=== PATIENT | female | born 1945 | race Asian ===

== ENCOUNTER 2018-10-23 15:08 | Inpatient (IN) | payer MEDICARE, MEDICAID ==
[~2018-10-23] VITALS: Ht 152.4 cm; Wt 77.3 kg
[~2018-10-23 15:08] MED LIST: ATOR20TA PO; BENA20TA82 PO; MECL-111 PO; METF500T PO
[2018-10-23] MEDS ORDERED: cefepime 2g/NS 100ml ADVANTAGE 100 ML IV ONE (15:40)
[2018-10-23] MEDS ORDERED: levoFLOXACIN-Levaquin 750MG/D5 150 ML IV ONE (15:40)
[2018-10-23 16:25] LABS: BASOPHILS % (AUTO) 0.4 % (0-1); EOSINOPHILS # (AUTO) 0.1 X10'3 (0-0.9); EOSINOPHILS % (AUTO) 1.1 % (0-6); HEMATOCRIT 41.2 % (35.0-45.0); HEMOGLOBIN 13.5 g/dl (12.0-16.0); LYMPHOCYTES # (AUTO) 0.5 X10'3 (1.1-4.8); LYMPHOCYTES % (AUTO) 10.5 % (21-51); MEAN CORPUSCULAR HEMOGLOBIN 25.6 PG (27.0-31.0); MEAN CORPUSCULAR HGB CONC 32.7 g/dL (33.0-36.5); MEAN CORPUSCULAR VOLUME 78.2 FL (78-98); MEAN PLATELET VOLUME 7.8 FL (7.4-10.4); MONOCYTES # (AUTO) 0.2 X10'3 (0-0.9); MONOCYTES % (AUTO) 3.9 % (2-12); NEUTROPHILS # (AUTO) 4.1 X10'3 (1.8-7.7); NEUTROPHILS % (AUTO) 84.1 % (42-75); PLATELET COUNT 163 X10'3 (140-440); RED BLOOD COUNT 5.26 X10'6 (4.20-5.60); RED CELL DISTRIBUTION WIDTH 15.7 % (11.5-14.5); WHITE BLOOD COUNT 4.8 X10'3 (4.5-11.0)
[2018-10-23 16:37] LABS: PARTIAL THROMBOPLASTIN TIME 27 SECONDS (22-32)
[2018-10-23 16:38] LABS: ALANINE AMINOTRANSFERASE 23 U/L (12-78); ALBUMIN 3.7 G/DL (3.4-5.0); ALBUMIN/GLOBULIN RATIO 0.9 (1.1-1.5); ALKALINE PHOSPHATASE 85 IU/L (46-116); ANION GAP 10 (8-16); ASPARTATE AMINO TRANSFERASE 27 U/L (10-37); BILIRUBIN,TOTAL 0.5 MG/DL (0.1-1.0); BLOOD UREA NITROGEN 16 MG/DL (7-18); BUN/CREATININE RATIO 18.4 (6.6-38.0); CALCIUM 9.4 MG/DL (8.5-10.1); CHLORIDE 104 MMOL/L (99-107); CREATININE 0.87 MG/DL (0.40-0.90); GLUCOSE 257 MG/DL (70-104); POTASSIUM 3.3 MMOL/L (3.5-5.1); SODIUM 140 MMOL/L (135-145); TOTAL CARBON DIOXIDE 26.1 MMOL/L (24-32); eGFR 64 ML/MIN
[2018-10-23 17:08] LABS: CLARITY,URINE CLEAR (Clear); GLUCOSE, URINE >=1000 mg/dl (Neg); KETONES,URINE NEGATIVE (Neg); LEUKOCYTE ESTERASE ,URINE NEGATIVE (Neg); NITRITES, URINE NEGATIVE (Neg); OCCULT BLOOD,URINE TRACE-LYSED (Neg); PROTEIN,URINE NEGATIVE (Neg); UROBILINOGEN,URINE 0.2 E.U/dL (0.2-1.0)
[2018-10-23 17:09] LABS: COLOR,URINE COLORLESS (Yellow)
[2018-10-23 17:10] LABS: UA COLLECTION TYPE CLN CATCH MIDSTREAM
[2018-10-23 17:20] LABS: BACTERIA,URINE NONE SEEN /HPF (Neg); RBC,URINE NONE SEEN /HPF (0-2); SQUAMOUS EPITHELIAL CELL,UR FEW /LPF (FEW); WBC,URINE NONE SEEN /HPF (0-4)
[2018-10-23] MEDS ORDERED: ASPI-1264 PO (18:26)
[2018-10-23] MEDS ORDERED: GLIM1TAB46 PO (18:26)
[2018-10-23] MEDS ORDERED: normal saline 1000ML IV soln IVB ONE (18:35)
[2018-10-23] MEDS ORDERED: acetaminophen 325mg tablet PO PRN (19:45)
[2018-10-23] MEDS ORDERED: magnesium hydroxide 30ml (MOM) UD suspension PO PRN (19:45)
[2018-10-23] MEDS ORDERED: ondansetron/PF 4mg/2ml inj IV PRN (19:45)
[2018-10-23] MEDS ORDERED: mag hydrox/Alum hydrox/simeth 30ml oral suspension PO PRN (19:45)
[2018-10-23] MEDS ORDERED: insulin Lispro (HumaLOG) vial - multi-dose SQ SCH (19:55)
[2018-10-23] MEDS ORDERED: dextrose 50%-water 50ml dispensing syringe IV PRN ×2 (19:55)
[2018-10-23] MEDS ORDERED: glucagon, human recombinant 1mg kit SUBCUT PRN (19:55)
[2018-10-23] MEDS ORDERED: dextrose ORAL solution 15 GM/59 ML bottle PO PRN ×2 (19:55)
[2018-10-23] MEDS ORDERED: MESSAGE TO PHARMACY PO ONE (19:55)
[2018-10-23] MEDS: heparin, porcine 5000 units/ml vial SQ SCH ×2 (20:00→20:47)
[2018-10-23] MEDS: insulin glargine (Lantus) pen - multi-dose SQ SCH (20:44)
[2018-10-23 22:14] LABS: HEMOGLOBIN A1C 7.4 % (4.5-6.2)
[2018-10-24 06:13] LABS: BASOPHILS % (AUTO) 0.9 % (0-1); EOSINOPHILS # (AUTO) 0.2 X10'3 (0-0.9); EOSINOPHILS % (AUTO) 5.1 % (0-6); HEMATOCRIT 38.1 % (35.0-45.0); HEMOGLOBIN 12.3 g/dl (12.0-16.0); LYMPHOCYTES # (AUTO) 1.1 X10'3 (1.1-4.8); LYMPHOCYTES % (AUTO) 32.9 % (21-51); MEAN CORPUSCULAR HEMOGLOBIN 25.4 PG (27.0-31.0); MEAN CORPUSCULAR HGB CONC 32.2 g/dL (33.0-36.5); MEAN CORPUSCULAR VOLUME 78.9 FL (78-98); MEAN PLATELET VOLUME 7.9 FL (7.4-10.4); MONOCYTES # (AUTO) 0.3 X10'3 (0-0.9); MONOCYTES % (AUTO) 9.6 % (2-12); NEUTROPHILS # (AUTO) 1.7 X10'3 (1.8-7.7); NEUTROPHILS % (AUTO) 51.5 % (42-75); PLATELET COUNT 173 X10'3 (140-440); RED BLOOD COUNT 4.83 X10'6 (4.20-5.60); RED CELL DISTRIBUTION WIDTH 15.6 % (11.5-14.5); WHITE BLOOD COUNT 3.3 X10'3 (4.5-11.0)
[2018-10-24 06:32] LABS: ALANINE AMINOTRANSFERASE 19 U/L (12-78); ALBUMIN 3.1 G/DL (3.4-5.0); ALBUMIN/GLOBULIN RATIO 0.9 (1.1-1.5); ALKALINE PHOSPHATASE 67 IU/L (46-116); ANION GAP 9 (8-16); ASPARTATE AMINO TRANSFERASE 24 U/L (10-37); BILIRUBIN,TOTAL 0.4 MG/DL (0.1-1.0); BLOOD UREA NITROGEN 16 MG/DL (7-18); BUN/CREATININE RATIO 21.6 (6.6-38.0); CHLORIDE 108 MMOL/L (99-107); CREATININE 0.74 MG/DL (0.40-0.90); GLUCOSE 115 MG/DL (70-104); POTASSIUM 3.2 MMOL/L (3.5-5.1); SODIUM 144 MMOL/L (135-145); TOTAL CARBON DIOXIDE 26.9 MMOL/L (24-32); TOTAL PROTEIN 6.7 G/DL (6.4-8.2); eGFR 78 ML/MIN
--- NOTE | 2018-10-24 06:38 | NUR ---
PT AWAKE, VSS, RE APPLY MONITOR LEADS SHE HAD TAKEN OFF WHEN UP TO COMMODE. PT DENIES CP OR ANY PAIN. PT STATES WHEN SHE FELL YESTERDAY SHE TRIPPED AND HAD HIT HER HEAD. NO BLOOD THINNERS.
--- NOTE | 2018-10-24 07:25 | NUR ---
received report from CHAVO Candelario in ER
[2018-10-24] MEDS: aspirin 325mg tablet PO SCH (08:00)
--- NOTE | 2018-10-24 08:00 | NUR ---
Patient arrived to room from ER, patient oriented to room, vitals obtained, in stable condition, call light in reach.
[2018-10-24] MEDS: lisinopril 20mg tablet PO SCH (08:02)
[2018-10-24] MEDS: heparin, porcine 5000 units/ml vial SQ SCH ×2 (08:04→20:12)
[2018-10-24 08:08] VITALS: BP 188/86
[2018-10-24] MEDS ORDERED: potassium Cl 40MEQ/NS 500ml 500 ML IV PRN ×2 (09:30)
[2018-10-24] MEDS ORDERED: potassium Cl 20 mEq SR tablet PO PRN (09:30)
[2018-10-24 09:41] LABS: CREATINE KINASE 163 U/L (26-192)
[2018-10-24 10:06] LABS: MAGNESIUM 1.6 MG/DL (1.5-2.4)
[2018-10-24] MEDS: potassium Cl 20 mEq SR tablet PO PRN ×3 (10:17→17:22)
[2018-10-24 11:00] VITALS: BP_SYST 152; BP_SYST 153; BP_SYST 157; BP_SYST 159; BP_DIAS 75; BP_DIAS 82; BP_DIAS 92
[2018-10-24] MEDS ORDERED: nitroGLYCERIN 0.4mg SUBLingual tab SL PRN ×2 (14:45→21:20)
--- NOTE | 2018-10-24 14:57 | NUR ---
unable to dart pt, she prefers to wait until family is here to help. pt will ask family to come
[2018-10-24 15:00] VITALS: BP 161/85
--- NOTE | 2018-10-24 15:23 | NUR ---
DM consult: A1C 7.4. Pt admit s/p fall from syncopal event. Hx non-[place] w/ [place] language per EMR. Family can translate but not currently present at bedside during RD visit. Pt s/p carotid US; will need DM ed prior to d/c. Addendum: 10/24/18 at [address] Amended: Links added.
--- NOTE | 2018-10-24 18:37 | NUR ---
Problems reprioritized. Patient report given, questions answered & plan of care reviewed with CHAVO Duff.
[2018-10-24 19:00] VITALS: BP 176/81
--- NOTE | 2018-10-24 19:29 | NUR ---
Patient in room PCU 3023G. I have received report from CHAVO JASSO and had the opportunity to ask questions and assume patient care. PATIENT IS STABLE. WILL CONTINUE TO MONITOR CLOSELY.
[2018-10-24] MEDS: metoprolol tartrate 12.5mg (1/2 tablet) PO SCH (20:11)
[2018-10-24] MEDS: insulin glargine (Lantus) pen - multi-dose SQ SCH (21:00)
[2018-10-24] MEDS ORDERED: aminophylline 250mg/10ml inj. IV PRN (21:20)
[2018-10-24] MEDS ORDERED: metoprolol tartrate 1mg/ml inj IV PRN (21:20)
[2018-10-25] VITALS (16 sets, daily range): BP systolic 109–187; BP diastolic 59–92
[2018-10-25] MEDS ORDERED: regadenoson 0.4mg/5ml syringe IV PRN (05:00)
[2018-10-25 05:24] LABS: BASOPHILS % (AUTO) 0.9 % (0-1); EOSINOPHILS # (AUTO) 0.2 X10'3 (0-0.9); EOSINOPHILS % (AUTO) 6.1 % (0-6); HEMATOCRIT 37.5 % (35.0-45.0); LYMPHOCYTES # (AUTO) 0.9 X10'3 (1.1-4.8); LYMPHOCYTES % (AUTO) 32.3 % (21-51); MEAN CORPUSCULAR HEMOGLOBIN 25.3 PG (27.0-31.0); MEAN CORPUSCULAR HGB CONC 32.1 g/dL (33.0-36.5); MEAN CORPUSCULAR VOLUME 78.9 FL (78-98); MEAN PLATELET VOLUME 8.2 FL (7.4-10.4); MONOCYTES # (AUTO) 0.3 X10'3 (0-0.9); MONOCYTES % (AUTO) 9.3 % (2-12); NEUTROPHILS # (AUTO) 1.5 X10'3 (1.8-7.7); NEUTROPHILS % (AUTO) 51.4 % (42-75); PLATELET COUNT 161 X10'3 (140-440); RED BLOOD COUNT 4.75 X10'6 (4.20-5.60); RED CELL DISTRIBUTION WIDTH 15.9 % (11.5-14.5); WHITE BLOOD COUNT 2.9 X10'3 (4.5-11.0)
[2018-10-25 05:37] LABS: ALANINE AMINOTRANSFERASE 19 U/L (12-78); ALBUMIN/GLOBULIN RATIO 0.9 (1.1-1.5); ALKALINE PHOSPHATASE 71 IU/L (46-116); ANION GAP 9 (8-16); ASPARTATE AMINO TRANSFERASE 25 U/L (10-37); BILIRUBIN,TOTAL 0.5 MG/DL (0.1-1.0); BLOOD UREA NITROGEN 17 MG/DL (7-18); BUN/CREATININE RATIO 22.4 (6.6-38.0); CALCIUM 9.2 MG/DL (8.5-10.1); CHLORIDE 107 MMOL/L (99-107); CREATININE 0.76 MG/DL (0.40-0.90); GLUCOSE 137 MG/DL (70-104); MAGNESIUM 1.8 MG/DL (1.5-2.4); POTASSIUM 3.9 MMOL/L (3.5-5.1); SODIUM 141 MMOL/L (135-145); TOTAL CARBON DIOXIDE 24.7 MMOL/L (24-32); TOTAL PROTEIN 6.5 G/DL (6.4-8.2); eGFR 75 ML/MIN
[2018-10-25 06:04] LABS: TOTAL CELLS COUNTED 100
[2018-10-25 06:05] LABS: ANISOCYTOSIS 1+; ELLIPTOCYTES 1+; MICROCYTOSIS 1+; PLATELET ESTIMATE NORMAL
--- NOTE | 2018-10-25 06:20 | NUR ---
Problems reprioritized. Patient report given, questions answered & plan of care reviewed with CHAVO MUNROE.
[2018-10-25] MEDS: aspirin 325mg tablet PO SCH (08:00)
[2018-10-25] MEDS: lisinopril 20mg tablet PO SCH (08:00)
[2018-10-25] MEDS: metoprolol tartrate 12.5mg (1/2 tablet) PO SCH (08:00)
--- NOTE | 2018-10-25 10:04 | NUR ---
Pt not present during RD visit; written/verbal DM ed w/ RD contact information provided in case of further questions. Addendum: 10/25/18 at [address] Amended: Links added.
[2018-10-25] MEDS: heparin, porcine 5000 units/ml vial SQ SCH (11:31)
[2018-10-25] MEDS ORDERED: METO25TA6 PO (12:44)
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
--- NOTE | 2018-10-25 15:17 | NUR ---
Completed discharge summary and instruction with pt and grandson. Awaiting a four wheeled walker per PT reccommendations, case management to order. Meds retrieved from pharmacy and given to pt. PIV discontinued and coban with gauze placed on site.
== END 2018-10-25 16:00 | disposition home health service (06) | DRG 309 ==
LOC: ER 15:09 → ED HOLD 19:42 → PCU 3S 10-24 07:45
PROVIDERS: ADMIT Internal Medicine; ATTEND Internal Medicine
DX: I49.5 Sick sinus syndrome (principal); I16.1 Hypertensive emergency; F07.81 Postconcussional syndrome; S09.90XA Unspecified injury of head, initial encounter; I10 Essential (primary) hypertension; E11.9 Type 2 diabetes mellitus without complications; K44.9 Diaphragmatic hernia without obstruction or gangrene; R26.89 Other abnormalities of gait and mobility; R74.8 Abnormal levels of other serum enzymes; W01.0XXA Fall on same level from slipping, tripping and stumbling without subsequent striking against object, initial encounter; Y93.01 Activity, walking, marching and hiking; E87.6 Hypokalemia; M48.02 Spinal stenosis, cervical region; Z90.710 Acquired absence of both cervix and uterus; Z86.73 Personal history of transient ischemic attack (TIA), and cerebral infarction without residual deficits; Z79.82 Long term (current) use of aspirin; Y99.8 Other external cause status; Z79.899 Other long term (current) drug therapy; Y92.009 Unspecified place in unspecified non-institutional (private) residence as the place of occurrence of the external cause
CPT/HCPCS: 36415; 70450; 71045; 72125; 80053; 81001; 82550; 82948; 83036; 83605; 83735; 84484; 85025; 85610; 85730; 87070; 93005; 93306; 93660; 93880; 96360; 97116; 97162; 97530; 99285; G0378; J0692; J1644; J1815

== ENCOUNTER 2021-07-18 12:52 | Emergency (ER) | payer MEDICARE, MEDICAID ==
[~2021-07-18] VITALS: Ht 157.5 cm; Wt 33.5 kg
[~2021-07-18 12:52] MED LIST changes: +AMA1T PO; +ASPI-1264 PO; -ATOR20TA PO; +LOP25T PO; -MECL-111 PO
[2021-07-18 13:35] LABS: BASOPHILS % (AUTO) 0.7 % (0-1); EOSINOPHILS # (AUTO) 0.1 X10'3 (0-0.9); EOSINOPHILS % (AUTO) 1.5 % (0-6); HEMATOCRIT 41.9 % (35.0-45.0); HEMOGLOBIN 13.6 g/dl (12.0-16.0); LYMPHOCYTES # (AUTO) 0.9 X10'3 (1.1-4.8); LYMPHOCYTES % (AUTO) 19.3 % (21-51); MEAN CORPUSCULAR HEMOGLOBIN 25.8 PG (27.0-31.0); MEAN CORPUSCULAR HGB CONC 32.5 g/dL (33.0-36.5); MEAN CORPUSCULAR VOLUME 79.5 FL (78-98); MEAN PLATELET VOLUME 7.7 FL (7.4-10.4); MONOCYTES # (AUTO) 0.3 X10'3 (0-0.9); MONOCYTES % (AUTO) 7.1 % (2-12); NEUTROPHILS # (AUTO) 3.3 X10'3 (1.8-7.7); NEUTROPHILS % (AUTO) 71.4 % (42-75); PLATELET COUNT 187 X10'3 (140-440); RED BLOOD COUNT 5.26 X10'6 (4.20-5.60); RED CELL DISTRIBUTION WIDTH 15.4 % (11.5-14.5); WHITE BLOOD COUNT 4.6 X10'3 (4.5-11.0)
[2021-07-18] MEDS ORDERED: meclizine 12.5mg tablet PO ONE (13:50)
[2021-07-18 13:57] LABS: ALANINE AMINOTRANSFERASE 28 U/L (12-78); ALBUMIN 4.1 G/DL (3.4-5.0); ALKALINE PHOSPHATASE 80 IU/L (46-116); ANION GAP 10 (8-16); ASPARTATE AMINO TRANSFERASE 23 U/L (10-37); BILIRUBIN,TOTAL 0.6 MG/DL (0.1-1.0); BLOOD UREA NITROGEN 11 MG/DL (7-18); BUN/CREATININE RATIO 13.9 (6.6-38.0); CALCIUM 9.1 MG/DL (8.5-10.1); CHLORIDE 102 MMOL/L (99-107); CREATININE 0.79 MG/DL (0.40-0.90); GLUCOSE 209 MG/DL (70-104); POTASSIUM 3.7 MMOL/L (3.5-5.1); SODIUM 139 MMOL/L (135-145); TOTAL CARBON DIOXIDE 27.2 MMOL/L (24-32); TOTAL PROTEIN 8.4 G/DL (6.4-8.2); eGFR 71 ML/MIN
[2021-07-18] MEDS ORDERED: MECL-226 PO (13:57)
[2021-07-18 15:30] LABS: CLARITY,URINE SLIGHTLY CLOUDY (Clear); GLUCOSE, URINE 250 mg/dl (Neg); KETONES,URINE NEGATIVE (Neg); LEUKOCYTE ESTERASE ,URINE NEGATIVE (Neg); NITRITES, URINE NEGATIVE (Neg); OCCULT BLOOD,URINE NEGATIVE (Neg); PROTEIN,URINE NEGATIVE (Neg); UROBILINOGEN,URINE 0.2 E.U/dL (0.2-1.0)
[2021-07-18 15:35] LABS: URINE AMPHETAMINE SCREEN NEGATIVE (Neg); URINE BARBITUATE SCREEN NEGATIVE (Neg); URINE BENZODIAZEPINES SCREEN NEGATIVE (Neg); URINE CANNABINOID SCREEN NEGATIVE (Neg); URINE COCAINE SCREEN NEGATIVE (Neg); URINE METHADONE SCREEN NEGATIVE (Neg); URINE OPIATE SCREEN NEGATIVE (Neg); URINE PHENCYCLIDINE SCREEN NEGATIVE (Neg)
[2021-07-18 15:36] LABS: COLOR,URINE STRAW (Yellow); UA COLLECTION TYPE CLN CATCH MIDSTREAM
[2021-07-18 15:43] LABS: BACTERIA,URINE 1+ /HPF (Neg); RBC,URINE 0-2 /HPF (0-2); WBC,URINE 0-4 /HPF (0-4)
[2021-07-18 15:45] LABS: SQUAMOUS EPITHELIAL CELL,UR MODERATE /LPF (FEW)
[2021-07-18 16:49] VITALS: BP 167/84
== END 2021-07-18 16:46 | disposition home or self-care (01) ==
LOC: ER 12:52
DX: R42 Dizziness and giddiness (principal); R53.83 Other fatigue; R53.81 Other malaise; R53.1 Weakness; R68.2 Dry mouth, unspecified; R11.0 Nausea; I10 Essential (primary) hypertension; E11.9 Type 2 diabetes mellitus without complications; Z90.710 Acquired absence of both cervix and uterus; Z72.89 Other problems related to lifestyle; Z79.82 Long term (current) use of aspirin; Z79.899 Other long term (current) drug therapy
CPT/HCPCS: 36415; 70450; 71045; 80053; 80305; 81001; 84484; 85025; 93005; 99285; J8597